=== PATIENT | male | born 1965 | race American Indian/Alaskan Native ===

== ENCOUNTER 2016-08-05 20:27 | Emergency (ER) | payer OTHER ==
[2016-08-05] MEDS ORDERED: TYLENOL ONE (20:37)
[2016-08-05 20:40] VITALS: BP 121/96
[2016-08-05] MEDS ORDERED: TYLENOL PO ONE (20:40)
[2016-08-05 21:04] LABS: Basophils % (Auto) 0.8 % (0.0-1.8); Eosinophils % (Auto) 0.3 % (0.0-4.3); Hematocrit 41.1 % (35.5-45.6); Hemoglobin 13.2 gm/dl (11.8-15.2); Mean Corpuscular HGB Conc 32 % (32-34); Mean Corpuscular Hemoglobin 29 pg (28-32); Mean Corpuscular Volume 89 fl (84-94); Platelet Count 182 K/mm3 (140-440); Red Blood Count 4.62 M/mm3 (3.65-5.03); Red Cell Distribution Width 14.9 % (13.2-15.2); White Blood Count 4.6 K/mm3 (4.5-11.0)
[2016-08-05 21:16] LABS: Anion Gap 16 mmol/L; BUN/Creatinine Ratio 14.54; Blood Urea Nitrogen 16 mg/dL (9-20); Calcium 8.5 mg/dL (8.4-10.2); Carbon Dioxide 23 mmol/L (22-30); Chloride 102.5 mmol/L (98-107); Glucose 84 mg/dL (75-100); Sodium 137 mmol/L (137-145)
--- NOTE | 2016-08-09 14:49 | ED Elopement Review ---
ED Pt Elopement review - Results review Lab results: Laboratory Tests 08/05/16 08/05/16 20:53 20:53 WBC 4.6 RBC 4.62 Hgb 13.2 Hct 41.1 MCV 89 MCH 29 MCHC 32 RDW 14.9 Plt Count 182 Lymph % (Auto) 18.6 [place] % (Auto) 5.4 Eos % (Auto) 0.3 Baso % (Auto) 0.8 Lymph # 0.9 L [place] # 0.3 Eos # 0.0 Baso # 0.0 Seg Neutrophils % 74.9 H Seg Neutrophils # 3.5 Sodium 137 Potassium 4.0 Chloride 102.5 Carbon Dioxide 23 Anion Gap 16 BUN 16 Creatinine 1.1 Estimated GFR > 60 BUN/Creatinine Ratio 14.54 Glucose 84 Calcium 8.5 Troponin T < 0.010 - Call Back decision Pt Call Back Decision: No action required
== END 2016-08-05 23:20 | disposition left against medical advice (07) ==
LOC: ED 20:27
DX: R07.9 Chest pain, unspecified (principal); R50.9 Fever, unspecified; R06.09 Other forms of dyspnea; Z53.21 Procedure and treatment not carried out due to patient leaving prior to being seen by health care provider
CPT/HCPCS: 36415; 80048; 84484; 85025; 93005; 93010